=== PATIENT | female | born 1960 ===

== ENCOUNTER 2021-06-20 18:51 | Emergency (ER) | payer BC, SELFPAY ==
[2021-06-20 19:14] VITALS: BP 125/73; PULSE 72; RESP 18; O2SAT 99
--- NOTE | 2021-06-20 19:45 | DI.RAD_ITS ---
Exam(s) XR THUMB RT EXAM: XR THUMB RT CLINICAL HISTORY: Swelling, Pain. TECHNIQUE: 2D digital imaging was performed of the right finger. Three views were obtained. PA/AP, oblique, and lateral views were obtained. COMPARISON: No exams were available for comparison FINDINGS: BONES: No acute fracture is present. No bony destructive lesion is seen. JOINTS: No dislocation present. SOFT TISSUE: Normal. IMPRESSION: No evidence of acute fracture, dislocation, or subluxation. DATA REPOSITORY: RADIATION DOSE DELIVERED:
--- NOTE | 2021-06-20 19:46 | W.ED.GENAD ---
Discharge Plan Disposition Patient Disposition: HOME Condition: Stable Discharge Details Clinical Impression: Felon of finger of right hand Primary Care Provider: [facility],Local ED Provider: Rosalva Wilson Home Meds and New Rx's Prescriptions: New cephalexin 500 mg capsule 500 mg PO BID 10 Days Qty: 20 0RF Rx Instructions: Take with Yogurt or probiotic Discharge Instructions Instructions: Paronychia (ED), Cellulitis (ED) Additional Instructions: You are placed on the orthopedic follow-up list. If you do not hear from them in the next 24 to 48 hours please call them to make an appointment. Change the dressing out every 12-24 hours. You may soak in sterile saline once a day. Finish the Bactrim. Take the Keflex as directed. Please take Tylenol or Ibuprofen with food every 4-6 hours as needed for pain and swelling. Stand Alone Forms: Work Release Referrals: Eriberto Delgado MD [ [facility] STAFF PHYSICIAN] - 3 days Jonathan Carlisle MD [ [facility] STAFF PHYSICIAN] - 3 days Discharge Data Discharge Date/Time-TO BE ENTERED AT DEPARTURE: 06/20/21 23:45 Medical Decision Making 61-year-old female presents to the ER with a chief complaint of right thumb swelling x3-week. Patient states that she was put on Bactrim approximately 1 week ago urgent care and had a needle aspiration I&D. She reports it is getting worse. She is unable to bend her thumb and has swelling all the way down to the base. She does have sensation intact to the distal aspect of her thumb. Appears to be a felon. Denies any fever chills wrist pain or arm pain. I did discuss treatment options including I&D and digital block which patient verbalized understanding and is in agreement with. 2322: I&D as noted in procedure note. Small amount of pus expressed from the medial aspect of the nailbed, a transverse incision performed at the base of the nailbed and a puncture to the thumb pad at patient request. No pus expressed from the thumb pad. Xeroform dressing and pressure gauze applied. Will place patient on cephalexin and instructed to continue and finish the Bactrim. Will place patient on Ortho follow-up list to be followed up with in the neck 5 days. Will instruct on elevation and twice daily saline soaks. Xerofoam gauze applied and compression bandage. Discussed home care. This text was generated using [employer] dictation system, please disregard any oddities of phrase or misspellings. HPI General Mode of arrival: ambulatory. Date/Time Provider Initiated Documentation: 06/20/21 19:25. Limitations to Documentation: no limitations. Information obtained by: patient and RN notes reviewed. HPI Narrative: 61-year-old female presents to the ER with a chief complaint of right thumb swelling x3-week. Patient states that she was put on Bactrim approximately 1 week ago urgent care and had a needle aspiration I&D. She reports it is getting worse. She is unable to bend her thumb and has swelling all the way down to the base. She does have sensation intact to the distal aspect of her thumb. Appears to be a felon. Denies any fever chills wrist pain or arm pain. Related Data Home Medications Medication Instructions Recorded Confirmed cephalexin 500 mg capsule 500 mg PO BID 10 Days #20 cap 06/20/21 Previous Rx's Medication Instructions Recorded cephalexin 500 mg capsule 500 mg PO BID 10 Days #20 cap 06/20/21 Allergies Allergy/AdvReac Type Severity Reaction Status Date / Time No Known Allergies Allergy Unverified 06/20/21 21:01 General Stated Complaint: Cellulitis PRACHI: 3 Review of Systems Musculoskeletal Musculoskeletal: Reports as per HPI and Reports joint swelling PFSH All Active Problems (Updated 06/20/21 @ 23:29 by Rosalva Wilson) Felon of finger of right hand (Acute) Social History Smoking/Tobacco Use Status: Never Smoking risk assessment performed?: Yes Substance use type: does not use Do you feel safe at home: Yes Do you feel safe in your relationship?: Yes Exam Extrem Right upper extremity: hand Details: abnormal to inspection, abnormal ROM of finger Details: unable to flex or extend and swelling; Negative for no lacerations and no ecchymosis Hand/finger images: 1. Significant swelling to right thumb, patient is able to flex and extend thumb, I do suspect a felon and or cellulitis. There is a healed puncture wound noted to the medial aspect from previous reported I&D at urgent care. Course Vital Signs Vital signs: Vital Signs Pulse 72 06/20/21 19:14 Respiratory Rate 18 06/20/21 19:14 Blood Pressure 125/73 06/20/21 19:14 Pulse Oximetry 99 06/20/21 19:14 Pulse 72 06/20/21 19:14 Respiratory Rate 18 06/20/21 19:14 Blood Pressure 125/73 06/20/21 19:14 Blood Pressure Position Sitting 06/20/21 19:14 Pulse Oximetry 99 06/20/21 19:14 Oxygen Delivery Method Room Air 06/20/21 19:14 Oxygen Flow Rate 0 06/20/21 19:14 Procedures Abscess I/D Site: Hand (thumb) Side (if applicable): Right Sedation/analgesia: None Local Anesthetic: Lidocaine 1% and Bupivicaine 0.5% Amount of anesthesia used (mL): 4 Technique: Incised with #11 Blade Amount of fluid expressed (mL): 5 Irrigation: Yes Packing used?: None Complications: Bleeding Nerve Block Nerve Block 1: Time out performed: No Local Anesthetic: Lidocaine 1% and Bupivicaine 0.5% Amount of anesthesia used (mL): 4 Side: right Nerve Blocks: digital (Four sided ring block to the thumb) Procedure Successful: Yes Patient Tolerated Procedure: well Complications: none
--- NOTE | 2021-06-20 21:00 | DI.VRAD_ITS ---
PROCEDURE INFORMATION: Exam: XR Right Finger(s) Exam date and time: 06/20/2021 8:27 PM Age: 61 years old Clinical indication: Other: Swelling, pain TECHNIQUE: Imaging protocol: XR Right fingers. Views: Minimum 2 views. COMPARISON: No relevant prior studies available. FINDINGS: Bones/joints: Normal. Soft tissues: Normal. IMPRESSION: No acute findings. Dictated and Authenticated by: Devika Booth MD. Ordering:PHI Blackwell MD
[2021-06-20] MEDS: Bupivacaine 0.5% Pres-Free 30 ML VIAL IJ (22:37)
== END 2021-06-20 23:45 | disposition home or self-care (01) ==
PROVIDERS: Emergency Provider Registered Nurse Emergency
DX: L03.011 Cellulitis of right finger (principal)
CPT/HCPCS: 10061; 99283; 73140